=== PATIENT | female | born 1985 | race Hispanic/Latino ===

== ENCOUNTER 2019-12-01 10:33 | Outpatient (CLI) | payer OTHER ==
--- NOTE | 2019-12-01 11:12 | ULT ---
EXAM: OB ultrasound COMPARISON: None HISTORY: female. Evaluate size, dates, and anatomy. TECHNIQUE: Multiplanar grayscale and color Doppler images were obtained in a transabdominal ult rasound. FINDINGS: There is a single live intrauterine with heart rate of 155 bpm. A survey wa s performed which is unremarkable. The head, intracranial structures, heart, stomach, kidneys, umbilical cord, umbilical cord insertion, spine, face, and extremities were evaluated and were unrema rkable. Estimated weight is 332 g. Average age of the fetus based off today's examination is 20 weeks 0 days. BPD 4.50 cm -- 19 weeks 5 days HC 16.89 cm -- 19 weeks 4 days AC 15.26 cm -- 20 weeks 4 days FL 3.17 cm -- 19 weeks 6 days The placenta is anterior in location without focal abnormality. SHREYA is 16.61 cm which is normal. The cervix is normal in length. The inferior tip of the placenta covers the internal os of the cervix. IMPRESSION: 1. Single live intrauterine with estimated age of 20 weeks 0 days. 2. Incomplete placenta previa. A repeat ultrasound in the third trimester is recommended sure that pl acenta previa is not present.
== END 2019-12-01 10:34 | disposition home or self-care (01) ==
LOC: BICULT 10:33
PROVIDERS: ATTEND Family Medicine
DX: Z34.82 Encounter for supervision of other normal pregnancy, second trimester (principal); Z3A.20 20 weeks gestation of pregnancy
CPT/HCPCS: 76805

== ENCOUNTER 2020-03-15 11:55 | Emergency (ER) | payer OTHER ==
[~2020-03-15 11:55] MED LIST: Iopamidol-370 76% 500 ML 1 ML ONE
[2020-03-15] MEDS ORDERED: Acetaminophen 500 MG TAB ONE (13:22)
[2020-03-15 13:31] LABS: #Eosinphils 0.1 thou/uL (0.0-0.7); #Lymphocytes 1.2 thou/uL (1.20-3.40); #Monocytes 0.6 thou/uL (0.11-0.59); #Neutrophils 9.6 thou/uL (1.40-6.50); %Basophils 0.1 % (0.0-1.0); %Eosinophils 0.7 % (0.0-10.0); %Lymphocytes 10.5 % (21.0-51.0); %Monocytes 5.1 % (0.0-10.0); %Neutrophils 83.6 % (42.0-75.0); Hemoglobin 11.5 g/dL (12.0-16.0); Mean Corpuscular HGB CONC 33.7 g/dL (32.0-36.0); Mean Platelet Volume 7.9 fL (7.4-10.4); Platelet Count 204 thou/uL (130-400); RBC Distribution Width 14.1 % (11.5-14.5); Red Blood Cell (RBC) Count 3.95 mill/uL (4.20-5.40); White Blood Cell (WBC) Count 11.5 thou/uL (4.8-10.8)
[2020-03-15 13:47] LABS: ALT (SGPT) 45 U/L (8-55); AST (SGOT) 42 U/L (5-34); Albumin 3.2 g/dL (3.5-5.0); Alkaline Phosphatase 386 U/L (40-110); Anion Gap 17 mmol/L (10-20); BUN (Urea Nitrogen) 7 mg/dL (7.0-18.7); Bilirubin, Total 0.7 mg/dL (0.2-1.2); Calc. Creatinine Clearance 0 mL/min (70-130); Calcium 8.4 mg/dL (7.8-10.44); Carbon Dioxide 16 mmol/L (22-29); Chloride 108 mmol/L (98-107); Globulin 3.9 g/dL (2.4-3.5); Glucose 94 mg/dL (70-105); Potassium 3.9 mmol/L (3.5-5.1); Protein, Total 7.1 g/dL (6.0-8.3); Sodium 137 mmol/L (136-145)
[2020-03-15] MEDS ORDERED: cefTRIAXone\\ROCEPHIN 1 GM VIAL ONE (14:16)
[2020-03-15] MEDS ORDERED: Azithromycin 500 MG VIAL ONE (14:17)
--- NOTE | 2020-03-15 14:26 | RAD ---
EXAM: Chest one view: HISTORY: Dyspnea COMPARISON: 09/30/2017 FINDINGS: Heart size: Within normal limits. Lungs: Patchy bilateral interstitial, alveolar, and groundglass opacity changes worrisome for bilater al Covid pneumonia. IMPRESSION: Bilateral minimal patchy parenchymal changes evidence for bilateral Covid pneumonia. Continued short- term follow-up.
[2020-03-15 15:04] LABS: SARS-CoV-2 NAA Rapid Test DETECTED (NotDetected)
[2020-03-15 15:09] LABS: Bacteria/HPF 4+ HPF (None Seen); Bilirubin Negative (Negative); Blood, Urine Negative (Negative); Clarity Turbid (Clear); Glucose, Urine (Dipstick) Normal (Negative); Ketone, Urine 60 mg/dL (Negative); Leukocyte Negative Leu/uL (Negative); Nitrite Negative (Negative); Protein, Urine (Dipstick) 50 mg/dL (Neg-Trace); RBC/HPF None Seen HPF (0-3); Specific Gravity, Urine 1.021 (1.002-1.036); Urobilinogen 3 mg/dL (Less than 2); WBC/HPF 0-3 HPF (0-3); pH, Urine 6.5 (5.0-9.0)
--- NOTE | 2020-03-15 16:13 | CT ---
CT ANGIOGRAM THORAX WITH IV CONTRAST AND 3-D RECONSTRUCTIONS CLINICAL INDICATION: Chest pain and shortness of breath in a patient with 35 week . Cough. COMPARISON: None FINDINGS: Pulmonary arteries: No filling defects are seen in the pulmonary arteries to suggest a pulmonary embo arun. Aorta: The aorta is normal in caliber without evidence of an aortic dissection. Lungs: There are scattered patchy groundglass parenchymal densities seen throughout the lungs bilater ally in a pattern suggestive of viral pneumonitis such as Covid 19. Mediastinum: Trace pericardial effusion is present. The heart is at the upper limits of normal in siz e. Soft tissue density in the anterior superior mediastinum is likely related to residual thymus. No enlarged lymph nodes are seen by CT size criteria. Thyroid gland: Normal CT appearance. Osseous structures: No suspicious lytic or sclerotic osseous lesion. Chest wall: No abnormality visualized. Upper abdomen: Masslike density in the upper abdomen is present which is likely related to partial vi sualization of patient's known intrauterine gestation. This difficult further evaluate and there is also significant artifact overlying this region due to overlying shield in place. IMPRESSION: 1. Scattered patchy groundglass densities throughout the lungs bilaterally in a pattern most compatib le with viral pneumonitis such as Covid 19. 2. No [address] evidence of a pulmonary embolus. 3. Masslike density upper abdomen incompletely imaged or evaluated, but this is likely attributable t o patient's known intrauterine gestation.
== END 2020-03-15 17:10 | disposition home or self-care (01) ==
LOC: ERS 11:55
DX: U07.1 COVID-19 (principal)
CPT/HCPCS: 0240U; 36415; 71045; 71275; 80053; 81003; 81015; 83605; 84443; 84484; 85025; 85379; 87040; 93005; 96365; 96368; J0456; J0696; Q9967

== ENCOUNTER 2020-04-12 09:11 | Outpatient (CLI) | payer OTHER ==
[2020-04-12 22:08] LABS: SARS-CoV-2 PCR by NAA DETECTED (NotDetected)
== END 2020-04-12 09:12 | disposition home or self-care (01) ==
LOC: LABBT 09:11
PROVIDERS: ATTEND Family Medicine
DX: U07.1 COVID-19 (principal); Z01.812 Encounter for preprocedural laboratory examination
CPT/HCPCS: 87635; U0003; U0005

== ENCOUNTER 2020-04-16 02:41 | Inpatient (IN) | payer OTHER ==
[2020-04-16] MEDS ORDERED: Penicillin G Potassium 5 MILL.UNITS VIAL ONE (02:57)
[2020-04-16] MEDS ORDERED: Methylergonovine 0.2 MG/ML VIAL IM PRN (03:15)
[2020-04-16] MEDS ORDERED: Ibuprofen 800 MG TAB PO PRN (03:15)
[2020-04-16] MEDS ORDERED: Lidocaine 1% (PF) 30 ML VIAL SC PRN (03:15)
[2020-04-16] MEDS ORDERED: Penicillin G Potassium 5 MILL.UNITS in Sodium Chloride 0.9% 100 ML IVPB SCH (03:15)
[2020-04-16] MEDS ORDERED: Misoprostol 200 MCG TAB RC PRN (03:15)
[2020-04-16] MEDS ORDERED: Carboprost 250 MCG/ML AMP IM PRN (03:15)
[2020-04-16] MEDS ORDERED: Penicillin G Potassium 2.5 MILL.UNITS in Sodium Chloride 0.9% 100 ML IVPB SCH (03:15)
[2020-04-16 03:21] VITALS: BMI 33.9
[2020-04-16 03:23] LABS: Hemoglobin 10.8 g/dL (12.0-16.0); Mean Corpuscular HGB CONC 32.8 g/dL (32.0-36.0); Mean Corpuscular Hemoglobin 27.5 pg (27.0-31.0); Mean Corpuscular Volume 83.9 fL (78.0-98.0); Mean Platelet Volume 8.2 fL (7.4-10.4); Platelet Count 258 thou/uL (130-400); RBC Distribution Width 15.2 % (11.5-14.5); Red Blood Cell (RBC) Count 3.91 mill/uL (4.20-5.40); White Blood Cell (WBC) Count 15.2 thou/uL (4.8-10.8)
[2020-04-16] MEDS ORDERED: Lactated Ringer's 1,000 ML IV SCH (03:30)
[2020-04-16] MEDS ORDERED: hydrALAZINE 20 MG/ML VIAL SLOW IVP PRN ×2 (03:30→09:29)
[2020-04-16] MEDS ORDERED: Acetaminophen 500 MG TAB PO PRN (03:30)
[2020-04-16] MEDS ORDERED: Ondansetron PF 4 MG/2 ML Vial IVP PRN ×3 (03:30→09:29)
[2020-04-16] MEDS ORDERED: Meperidine HCl/PF 25 MG/ML VIAL IM/IV PRN (03:30)
[2020-04-16] MEDS ORDERED: Butorphanol Tartrate 1 MG/ML VIAL SLOW IVP PRN (03:30)
[2020-04-16] MEDS ORDERED: Promethazine HCl 25 MG/ML VIAL IM PRN ×3 (03:30→09:29)
[2020-04-16] MEDS ORDERED: Fentanyl 4 mcg/Bup 0.1% Cadd 100 ML ONE (03:32)
[2020-04-16] MEDS ORDERED: Lactated Ringer's 500 ML IV PRN (04:12)
[2020-04-16] MEDS ORDERED: Naloxone HCl 0.4 mg/ml Vial IVP PRN ×2 (04:12)
[2020-04-16] MEDS ORDERED: Acetaminophen 325 MG TAB PO PRN (04:12)
[2020-04-16] MEDS ORDERED: ePHEDrine 50 MG/ML VIAL SLOW IVP PRN (04:12)
[2020-04-16] MEDS ORDERED: diphenhydrAMINE 50 MG/ML VIAL IVP PRN (04:12)
[2020-04-16] MEDS ORDERED: Communication Order-Pharmacy FS SCH (04:15)
[2020-04-16] MEDS ORDERED: Fentanyl 4 mcg/Bupivacaine 0.1% Cassette 100 ML EPIDURAL SCH (04:15)
[2020-04-16 04:24] LABS: HBSAg Index 0.12 S/CO (0-0.99); Hep B Surf Ag Non-Reactive S/CO (NonReactive)
[2020-04-16 04:34] LABS: Syphilis Antibody Nonreactive (Nonreactive); Syphilis Antibody Index 0.05 S/CO (<1.00 Non-Reactive)
[2020-04-16] MEDS ORDERED: NS w/ Oxytocin 30 units 500 ML ONE ×2 (05:23→07:16)
[2020-04-16] MEDS ORDERED: Benzocaine-Menthol 82.5 ML CAN TOP PRN (09:29)
[2020-04-16] MEDS ORDERED: diphenhydrAMINE 25 MG CAP PO PRN (09:29)
[2020-04-16] MEDS ORDERED: Bisacodyl 10 MG SUPP PR PRN (09:29)
[2020-04-16] MEDS ORDERED: Milk Of Magnesia 30 ML UDCUP PO PRN (09:29)
[2020-04-16] MEDS ORDERED: NS / Oxytocin 40 units/1000ml 1,000 ML IV SCH (09:29)
[2020-04-16] MEDS ORDERED: HYDROcodone/Acetaminophen 5/325 mg Tablet PO PRN (09:29)
[2020-04-16] MEDS ORDERED: Lanolin Ointment 7 GM TUBE TOP PRN (09:29)
[2020-04-16] MEDS ORDERED: Lidocaine 2% PF 5 ML VIAL ONE (11:17)
[2020-04-16] MEDS: Ibuprofen 800 MG TAB PO SCH ×2 (14:43→22:04)
[2020-04-16] MEDS: Ferrous Sulfate 325 MG TAB PO SCH (16:40)
[2020-04-16] MEDS: HYDROcodone/Acetaminophen 5/325 mg Tablet PO PRN (16:56)
[2020-04-16] MEDS: Docusate Calcium (SURFAK) 240 MG CAP PO SCH (22:04)
[2020-04-17] MEDS: Ferrous Sulfate 325 MG TAB PO SCH ×2 (08:42→16:29)
[2020-04-17] MEDS: Ibuprofen 800 MG TAB PO SCH ×3 (08:42→21:11)
[2020-04-17] MEDS: Docusate Calcium (SURFAK) 240 MG CAP PO SCH ×2 (08:48→21:11)
[2020-04-17] MEDS: Prenatal Vitamin 1 TAB PO SCH (08:48)
[2020-04-17] MEDS: HYDROcodone/Acetaminophen 5/325 mg Tablet PO PRN ×2 (08:51→17:39)
[2020-04-17] MEDS ORDERED: Adacel (T-DAP) 0.5 ML SYRINGE IM ONE (09:29)
[2020-04-18] MEDS: Ibuprofen 800 MG TAB PO SCH (05:56)
[2020-04-18] MEDS: Ferrous Sulfate 325 MG TAB PO SCH (07:01)
[2020-04-18 07:58] VITALS: BP 130/69; TEMP 98
[2020-04-18] MEDS: Prenatal Vitamin 1 TAB PO SCH (08:17)
[2020-04-18] MEDS: Docusate Calcium (SURFAK) 240 MG CAP PO SCH (08:18)
== END 2020-04-18 10:55 | disposition home or self-care (01) | DRG 807 ==
LOC: L&D/OP 02:41 → L&D 03:54 → 3SE 09:20
PROVIDERS: ADMIT Family Medicine; ATTEND Family Medicine
PROC: 10E0XZZ Delivery of Products of Conception, External Approach (ICD-10-PCS; principal; 2020-04-16)
DX: O99.824 Streptococcus B carrier state complicating childbirth (principal); Z37.0 Single live birth; O48.0 Post-term pregnancy; Z3A.40 40 weeks gestation of pregnancy; O64.0XX0 Obstructed labor due to incomplete rotation of fetal head, not applicable or unspecified
CPT/HCPCS: 36415; 51702; 85027; 86780; 86850; 86900; 86901; 87340; 99285; J2001; J2540; J3490

== ENCOUNTER 2020-09-02 17:06 | Emergency (ER) | payer OTHER ==
[2020-09-02 17:32] LABS: Bacteria/HPF 4+ HPF (None Seen); Bilirubin 1+ (Negative); Blood, Urine 2+ (Negative); Clarity Extra Turbid (Clear); Glucose, Urine (Dipstick) Normal (Negative); Ketone, Urine Negative (Negative); Leukocyte 500 Leu/uL (Negative); Nitrite 1+ (Negative); Protein, Urine (Dipstick) 70 mg/dL (Neg-Trace); RBC/HPF Greater than 50 HPF (0-3); Specific Gravity, Urine 1.018 (1.002-1.036); WBC/HPF Greater than 50 HPF (0-3)
[2020-09-02 19:39] LABS: #Monocytes 1.4 thou/uL (0.11-0.59); #Neutrophils 10.8 thou/uL (1.40-6.50); %Basophils 0.1 % (0.0-1.0); %Eosinophils 0.1 % (0.0-10.0); %Lymphocytes 7.7 % (21.0-51.0); %Monocytes 10.4 % (0.0-10.0); %Neutrophils 81.8 % (42.0-75.0); Hemoglobin 11.8 g/dL (12.0-16.0); Mean Corpuscular HGB CONC 32.8 g/dL (32.0-36.0); Mean Corpuscular Volume 88.2 fL (78.0-98.0); Mean Platelet Volume 7.3 fL (7.4-10.4); Platelet Count 263 thou/uL (130-400); RBC Distribution Width 13.9 % (11.5-14.5); Red Blood Cell (RBC) Count 4.08 mill/uL (4.20-5.40); White Blood Cell (WBC) Count 13.2 thou/uL (4.8-10.8)
[2020-09-02 19:45] LABS: BHCG - Serum Negative (NEGATIVE); Pregs Control Background? CLEAR/WHITE (CLR/WHITE); Pregs Control Bar Appear? YES (CONTROL BAR)
[2020-09-02 19:52] LABS: ALT (SGPT) 25 U/L (8-55); AST (SGOT) 21 U/L (5-34); Alkaline Phosphatase 72 U/L (40-110); Anion Gap 14 mmol/L (10-20); BUN (Urea Nitrogen) 8 mg/dL (7.0-18.7); Bilirubin, Total 0.6 mg/dL (0.2-1.2); Calc. Creatinine Clearance 0 mL/min (70-130); Calcium 9.1 mg/dL (7.8-10.44); Carbon Dioxide 22 mmol/L (22-29); Chloride 103 mmol/L (98-107); Globulin 3.7 g/dL (2.4-3.5); Glucose 115 mg/dL (70-105); Potassium 3.5 mmol/L (3.5-5.1); Protein, Total 7.7 g/dL (6.0-8.3); Sodium 135 mmol/L (136-145)
[2020-09-02] MEDS ORDERED: cefTRIAXone\\ROCEPHIN 1 GM VIAL ONE (19:56)
[2020-09-02] MEDS ORDERED: Acetaminophen 500 MG TAB ONE (19:56)
== END 2020-09-02 23:03 | disposition home or self-care (01) ==
LOC: ERS 17:06
DX: N10 Acute pyelonephritis (principal)
CPT/HCPCS: 36415; 74176; 80053; 81003; 81015; 83605; 84703; 85025; 87040; 87077; 87086; 87186; 93005; 94760; 96365; 96375; J0696